=== PATIENT | male | born 1955 | race Caucasian/White ===

== ENCOUNTER → 2018-03-28 | Outpatient (CLI) | payer OTHER ==
[~2018-03-28] MED LIST: AMLO10 PO; ASCO500 PO; ASPI325 PO; CYAN1000 PO; ESOM20 PO; FISH1000 PO; GARLIC OIL; LISHYD2025 PO; MILK THISTLE PO; Protonix40 MG PO; TOCO400 PO
== END ==
LOC: EDSTATUS 10:23 → PLD 13:39 → LAB SHORT 13:39
DX: L82.0 Inflamed seborrheic keratosis (principal)
CPT/HCPCS: 88305

== ENCOUNTER 2022-12-16 06:02 | Day surgery (SDC) | payer MEDICARE ==
[~2022-12-16] VITALS: Ht 177.8 cm; Wt 92.1 kg
[~2022-12-16 06:02] MED LIST changes: +DIPH50 PO
--- NOTE | 2022-12-16 07:42 | NUR ---
12/16/22 0742 Lucy Benson MONITOR INTACT WITH CONTINUOUS PULSE OXIMETRY, CONTINUOUS END TITAL CO2, AND INTERMITTENT BLOOD PRESSURE.
== END 2022-12-16 08:53 | disposition home or self-care (01) ==
LOC: ORSCMMR 06:02 → ORSCSDS 07:30 → ORD 07:30 → ORSCMMR 08:53
PROVIDERS: Surgery
PROC: 0DBH8ZX Excision of Cecum, Via Natural or Artificial Opening Endoscopic, Diagnostic (ICD-10-PCS; principal; 2022-12-16 07:30)
PROC: 0DBP8ZX Excision of Rectum, Via Natural or Artificial Opening Endoscopic, Diagnostic (ICD-10-PCS; principal; 2022-12-16 07:30)
DX: R19.5 Other fecal abnormalities (principal); Z86.010 Personal history of colon polyps; D12.0 Benign neoplasm of cecum; K62.1 Rectal polyp; I10 Essential (primary) hypertension; K74.60 Unspecified cirrhosis of liver; G70.00 Myasthenia gravis without (acute) exacerbation; Z87.891 Personal history of nicotine dependence; E78.00 Pure hypercholesterolemia, unspecified; Z79.899 Other long term (current) drug therapy
CPT/HCPCS: 88305; J2704; J7120